=== PATIENT | female | born 1960 | race Caucasian/White ===

== ENCOUNTER 2018-02-07 07:54 | Emergency (ER) | payer OTHER, MEDICARE, SELFPAY ==
[2018-02-07 08:05] VITALS: BP 128/88; PULSE 85; RESP 20; TEMP 36.2; O2SAT 98; BMI 25.6
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
[2018-02-07] MEDS: MORPHINE 10 MG/ML INJ 4 MG IM (08:34)
[2018-02-07] MEDS: diazePAM 2 MG TABLET PO (08:37)
[2018-02-07 09:38] VITALS: BP 124/65; PULSE 72; RESP 20; O2SAT 95
== END 2018-02-07 09:38 | disposition home or self-care (01) ==
PROVIDERS: Emergency Provider Emergency Medicine; PCP Physician Assistant Medical
DX: M94.0 Chondrocostal junction syndrome [Tietze] (principal)
CPT/HCPCS: 99282; 99283; J2270

== ENCOUNTER 2018-02-09 12:10 | Emergency (ER) | payer OTHER, MEDICARE, MEDICAID, SELFPAY ==
[2018-02-09 12:18] VITALS: BP 142/92; PULSE 89; RESP 18; TEMP 36.7; O2SAT 95
[2018-02-09 13:10] VITALS: BP 111/93; PULSE 83; O2SAT 97
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
[2018-02-09] MEDS: KETOROLAC 60 MG/2 ML VIAL 30 MG IM (13:39)
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
--- NOTE | 2018-02-09 14:52 | PC.NURSE ---
pt awake, out of bed, states, going to the bathroom, toradol with relief. states, im tired of being in pain and nothing we can do about it, reassured and son will be back for her. she states, he will be gone for 2 hours
--- NOTE | 2018-02-09 14:55 | PC.NURSE ---
noted increase/improvement with movement, pt states, ice pack did nt help.
[2018-02-09 15:00] VITALS: BP 103/86; PULSE 89; RESP 21; O2SAT 94
--- NOTE | 2018-02-09 15:24 | PC.NURSE ---
pt states, she did not get a hold of her son and that she was going to walk home. provider aware plan consult with social service
--- NOTE | 2018-02-09 15:43 | PC.NURSE ---
pt states, I dont want to get a ride from my son, salty. shortly recieved a call from salty, requesting to wait for him to arrive , before discharging the pt. provider made aware. pt requested right arm to be dressed. right arm cleaned with hibiclen and rinsed with normal saline, dried and bacitracin ointment applied with 4x4 with kerlix, tolerated well, site with no s/sxs of infections, distal cms intact.
== END 2018-02-09 16:35 | disposition home or self-care (01) ==
PROVIDERS: Emergency Provider Nurse Practitioner Family; PCP Physician Assistant Medical
DX: M94.0 Chondrocostal junction syndrome [Tietze] (principal)
CPT/HCPCS: 71046; 74019; 93005; 96372; 99283; 99284; J1885

== ENCOUNTER → 2024-05-15 10:54 | Outpatient (CLI) | payer MEDICARE, MEDICAID, SELFPAY ==
--- NOTE | 2024-05-15 10:56 | DI.CT.S_ITS ---
PROCEDURE: CT ABDOMEN PELVIS W CON INDICATIONS: NAUSEA, VOMITING TECHNIQUE: After the administration of intravenous contrast, axial sections acquired from the lung bases to the pubic symphysis. Coronal and sagittal reformats were performed. For radiation dose reduction, the following was used: automated exposure control, adjustment of mA and/or kV according to patient size. COMPARISON: None. FINDINGS: Image quality: Diagnostic. Lower Chest: Emphysematous change. ABDOMEN: Liver: No solid mass. A few hypodense foci which have the appearance of benign cysts. Gallbladder: Absent. Biliary ducts: No biliary dilation. Pancreas: No ductal dilation. No peripancreatic fluid collection. Spleen: Size is within normal limits. Small splenule. Adrenal Glands: No adrenal nodules. Kidneys and Ureters: No hydronephrosis. No solid mass. No complex renal cystic lesion which requires follow up. Stomach and Bowel: Normal colonic caliber, without significant wall thickening. Normal appendix. No diverticulitis. No small bowel obstruction. Stomach is within normal limits. Peritoneum: No abnormal intraperitoneal fluid. No free air. Ventral Wall: No significant ventral hernia. Abdominal Nodes: No retroperitoneal or mesenteric adenopathy by size criteria. Vessels: Aorta and inferior vena cava are normal in size. Calcified atherosclerotic plaque. PELVIS: Pelvic Organs: Uterus is absent. Bladder: Small focus of gas in the nondependent urinary bladder. This could be due to prior instrumentation. No stone. Pelvic Nodes: No enlarged lymph nodes. Miscellaneous: No inguinal hernias are seen. Bones: No aggressive osseous abnormality. DDD. IMPRESSION: 1. No acute inflammatory process is identified. No free fluid. No bowel obstruction. 2. Small focus of gas in the urinary bladder. This could be due to catheterization. Recommend clinical correlation. Gas-forming organism/infection could have a similar appearance. Dictated by: Vivek Solis M.D. on 05/15/2024 at 16:29 Approved by: Vivek Solis M.D. on 05/15/2024 at 16:34
[2024-05-15 11:36] LABS: Estimated Glomerular Filt Rate > 60 mL/min (>60)
== END ==
PROVIDERS: Radiology Diagnostic Radiology; PCP Physician Assistant Medical; Referring Provider Internal Medicine; Visit Provider Internal Medicine
DX: R11.2 Nausea with vomiting, unspecified (principal); Z90.49 Acquired absence of other specified parts of digestive tract; Z90.710 Acquired absence of both cervix and uterus
CPT/HCPCS: 36415; 74177; 82565; Q9967